=== PATIENT | female | born 1960 | race Caucasian/White ===

== ENCOUNTER 2020-12-02 11:20 | Emergency (ER) | payer BC ==
[~2020-12-02] VITALS: Ht 167.6 cm; Wt 97.5 kg
[~2020-12-02 11:20] MED LIST: AMOX500 PO; DULO60 PO; HYDACE5 PO; HYDHOMSY PO; MONT10T PO; OXYACE5T PO; PRED5 PO; TRAZ50 PO
[2020-12-02] MEDS ORDERED: Prozac20 MG PO (11:42)
[2020-12-02] MEDS ORDERED: Valium5 MG PO (13:23)
[2020-12-02] MEDS ORDERED: MOTION RELIEF25 MG PO (13:23)
== END 2020-12-02 13:43 | disposition home or self-care (01) ==
LOC: ER 11:20
DX: H81.399 Other peripheral vertigo, unspecified ear (principal); Z79.899 Other long term (current) drug therapy
CPT/HCPCS: 70450; 96374; 99284-25; A9270; J3360; J7030